=== PATIENT | female | born 1930 | race Caucasian/White ===

== ENCOUNTER → 2020-04-14 13:59 | Outpatient (CLI) | payer MEDICARE, BC ==
[2015-06-24 07:38] VITALS: BMI 27.5
[~2020-04-14 13:59] MED LIST: AMARYL1 MG PO; ARMOUR THYROID30 MG PO; BAYER CHEWABLE81 MG PO; GABAPENTIN100 MG PO; GLIMEPIRIDE1 MG PO; GLIMEPIRIDE4 MG PO; GLUCOPHAGE850 MG PO; MYSOLINE 50 MG50 MG PO; PLAVIX75 MG PO; PREDNISONE; PREDNISONE20 MG PO; PREDNISONE5 MG PO
== END | disposition home or self-care (01) ==
LOC: D.CT 13:59
PROVIDERS: ATTEND Family Medicine
DX: R60.0 Localized edema (principal)

== ENCOUNTER → 2020-04-23 10:12 | Outpatient (CLI) | payer MEDICARE, BC ==
[2015-06-24 07:38] VITALS: BMI 27.5
== END | disposition home or self-care (01) ==
LOC: D.CT 10:12
PROVIDERS: ATTEND Family Medicine
DX: R60.0 Localized edema (principal)